=== PATIENT | female | born 1980 | race Caucasian/White ===

== ENCOUNTER 2025-08-19 17:03 | Emergency (ER) | payer BC, OTHER ==
[~2025-08-19] VITALS: Ht 162.6 cm; Wt 79.4 kg
[2025-08-19 17:59] LABS: PLATELET COUNT (AUTO) 294 K/uL (150-450); RED BLOOD CELL COUNT(AUTO) 4.69 MIL/uL (4.0-5.2); RED CELL DISTRIBUTION WIDTH 13.3 % (11.5-15.0); WHITE BLOOD COUNT (AUTO) 9.8 K/uL (4.3-11.0)
[2025-08-19 18:08] LABS: CALCIUM, SERUM 8.4 mg/dL (8.5-10.1); CREATININE 0.9 mg/dL (0.6-1.3); SODIUM SERUM 136 mmol/L (136-145); UREA NITROGEN, BLOOD 8 mg/dL (7-18)
[2025-08-19 18:20] LABS: ASPARTATE AMINOTRANSFERASE 13 U/L (15-37); NT-PRO BNP 42 pg/mL (0-125); TOTAL PROTEIN, SERUM 7.2 g/dL (6.4-8.2)
[2025-08-22 10:15] VITALS: BP 128/78; TEMP 98.2; O2SAT 99
== END 2025-08-19 17:30 | disposition home or self-care (01) ==
LOC: ER 17:05
DX: R07.89 Other chest pain (principal); R06.02 Shortness of breath; Z88.2 Allergy status to sulfonamides
CPT/HCPCS: 36415; 71045-TC; 80048-TC; 80076-TC; 83880; 84484-TC; 85025-TC